=== PATIENT | male | born 1945 | race Caucasian/White ===

== ENCOUNTER 2017-12-21 10:37 | Outpatient (CLI) | payer MEDICARE ==
[2017-12-21 11:23] LABS: Mean Corpuscular HGB CONC 34.3 g/dL (32.0-36.0); Mean Corpuscular Hemoglobin 32.5 pg (27.0-31.0); Mean Corpuscular Volume 94.6 fL (78.0-98.0); Mean Platelet Volume 7.9 fL (7.4-10.4); Platelet Count 191 thou/uL (130-400); RBC Distribution Width 11.5 % (11.5-14.5); Red Blood Cell (RBC) Count 4.31 mill/uL (4.70-6.10); White Blood Cell (WBC) Count 5.3 thou/uL (4.8-10.8)
[2017-12-21 11:29] LABS: PTT 25.7 SEC (22.9-36.1); Prothrombin Time 12.7 SEC (12.0-14.7)
[2017-12-21 11:54] LABS: Anion Gap 8 mmol/L (10-20); BUN (Urea Nitrogen) 19 mg/dL (8.4-25.7); Calc. Creatinine Clearance 0 mL/min (70-130); Carbon Dioxide 30 mmol/L (23-31); Chloride 106 mmol/L (98-107); Estimated GFR-MDRD 61; Glucose 210 mg/dL (83-110); Potassium 3.3 mmol/L (3.5-5.1); Sodium 141 mmol/L (136-145)
--- NOTE | 2017-12-24 20:50 | EKG ---
Test Reason : Blood Pressure : / mmHG Vent. Rate : 090 BPM Atrial Rate : 090 BPM P-R Int : 212 ms QRS Dur : 102 ms QT Int : 358 ms P-R-T Axes : 047 -16 032 degrees QTc Int : 437 ms Sinus rhythm with occasional Premature ventricular complexes Voltage criteria for left ventricular hypertrophy Abnormal ECG No previous ECGs available Confirmed by Burke BECERRIL ([id number]) on 12/24/2017 8:50:46 PM Referred By: KAITY Confirmed By:Burke BECERRIL
== END 2017-12-21 10:38 | disposition home or self-care (01) ==
LOC: LABBT 10:37
PROVIDERS: ATTEND Surgery
DX: Z01.818 Encounter for other preprocedural examination (principal); M48.061 Spinal stenosis, lumbar region without neurogenic claudication; M54.16 Radiculopathy, lumbar region
CPT/HCPCS: 80048; 85027; 85610; 85730; 93005; 93010

== ENCOUNTER 2017-12-28 08:27 | Day surgery (SDC) | payer MEDICARE ==
[2017-12-21 11:03] VITALS: BMI 30.7
[2017-12-28] MEDS ORDERED: Bacitracin Zinc Ointment 30 gm TUBE ONE (10:33)
[2017-12-28] MEDS ORDERED: Thrombin 5000 UNITS/5 ML VIAL ONE (10:33)
[2017-12-28] MEDS ORDERED: Sodium Chloride 0.9% 10 ML ONE (10:33)
[2017-12-28] MEDS ORDERED: Fentanyl 100 MCG/2 ML VIAL ONE (10:39)
[2017-12-28] MEDS ORDERED: CEFAZOLIN/Water 2 GM/20 ML SYRINGE ONE (10:42)
--- NOTE | 2017-12-28 13:07 | OP ---
DATE OF PROCEDURE: 12/28/2017 OR: OR #11. WOUND TYPE: Type 1 wound. SURGEON: Everton Haas M.D. [employer] OPERATOR: Mario Robles PA-C. PREPROCEDURE DIAGNOSES: Lumbar stenosis with low back and leg pain. POSTPROCEDURE DIAGNOSES: Lumbar stenosis with low back and leg pain. PROCEDURE: L2-L3, L3-L4 laminectomies, partial facetectomy, and foraminotomies L2, L3, L4 nerve root . DESCRIPTION OF PROCEDURE: After informed consent was obtained from the patient, the patient brought to OR 11. Proper patient pause and identification was carried out. He was placed under excellent ge neral endotracheal anesthesia and positioned prone on the OR table. All appropriate points were padd ed. We identified the midline lumbar region. A linear gabby was made. This area sterilely cleansed, prepared, and draped. Proper patient positive identification was carried out. The wound was then o pened with a combination of sharp, monopolar and blunt dissection. The L2, L3, L4 segments were expo sed. Localization film confirmed our area of interest and performed L2-L3, L3-L4 laminectomies, part ial facetectomies and foraminotomies over the L2, L3, L4 nerve roots with excellent decompression of the common dural tube and the nerve roots. Copious irrigation occurred throughout as did maximizing hemostasis. The wound was then closed in anatomic layers following the sprinkling of vancomycin powd er. The patient then emerged from anesthesia.
[2017-12-28] MEDS ORDERED: Promethazine HCl 25 MG/ML VIAL IM PRN ×2 (13:26→13:27)
[2017-12-28] MEDS ORDERED: PACU-Morphine 4MG/ML VIAL SLOW IVP PRN (13:26)
[2017-12-28] MEDS ORDERED: Promethazine HCl 25 MG/ML VIAL SLOW IVP PRN (13:26)
[2017-12-28] MEDS ORDERED: Ondansetron HCl/PF 4 MG/2 ML Vial IVP PRN (13:26)
[2017-12-28] MEDS ORDERED: HYDROmorphone 2 MG/ML VIAL SLOW IVP PRN (13:26)
[2017-12-28] MEDS ORDERED: Meperidine HCl/PF 25 MG/ML VIAL SLOW IVP PRN (13:26)
[2017-12-28] MEDS ORDERED: Morphine Sulfate 2 MG/ML SYRINGE SLOW IVP PRN (13:26)
[2017-12-28] MEDS ORDERED: traMADol HCl 50 MG TAB PO PRN (13:27)
[2017-12-28] MEDS ORDERED: Acetaminophen 325 MG TAB PO PRN (13:27)
[2017-12-28] MEDS ORDERED: Mag-Al 1200 mg/1200 mg/30 ML UDCUP PO PRN (13:27)
[2017-12-28] MEDS ORDERED: Fleet Enema 133 ML BOT PR PRN (13:27)
[2017-12-28] MEDS ORDERED: HYDROcodone/Acetaminophen 7.5/325 mg Tablet PO PRN (13:27)
[2017-12-28] MEDS ORDERED: Bisacodyl 10 MG SUPP PR PRN (13:27)
[2017-12-28] MEDS ORDERED: tiZANidine HCl 4 MG TAB PO PRN (13:27)
[2017-12-28] MEDS ORDERED: Acetaminophen/Codeine 30-300mg Tablet PO PRN (13:27)
[2017-12-28] MEDS ORDERED: Milk Of Magnesia 30 ML UDCUP PO PRN (13:27)
[2017-12-28] MEDS ORDERED: Sodium Chloride 0.9% 1,000 ML IV SCH (13:30)
[2017-12-28] MEDS ORDERED: Glycopyrrolate 0.2 MG/ML 5 ML SYRINGE ONE (15:45)
[2017-12-28] MEDS ORDERED: PHENYLEPHRINE-NS 100 MCG/ML 10 ML SYRINGE ONE (15:45)
[2017-12-28] MEDS ORDERED: PROPOFOL 200 MG/20 ML VIAL ONE (15:45)
[2017-12-28] MEDS ORDERED: Dexamethasone 20 MG/5 ML VIAL ONE (15:45)
[2017-12-28] MEDS ORDERED: Metoclopramide HCl 10 MG/2 ML VIAL ONE (15:45)
[2017-12-28] MEDS ORDERED: Lidocaine 1% PF 5 ML VIAL ONE (15:45)
[2017-12-28] MEDS ORDERED: Ondansetron HCl/PF 4 MG/2 ML Vial ONE (15:45)
[2017-12-28] MEDS ORDERED: ePHEDrine/0.9% NaCl/PF SYRINGE 50 mg/10 ml ONE (15:45)
[2017-12-28] MEDS ORDERED: CEFAZOLIN/Water 2 GM/20 ML SYRINGE SLOW IVP SCH (19:00)
[2017-12-28] MEDS ORDERED: Latanoprost 0.005% Ophth Soln 2.5 ml Bottle EA EYE SCH (21:00)
[2017-12-29] MEDS ORDERED: Amlodipine 10 MG TAB ONE (08:54)
[2017-12-29] MEDS ORDERED: Atorvastatin Calcium 10 MG TAB ONE (08:55)
[2017-12-29] MEDS ORDERED: Amlodipine 10 MG TAB PO SCH (09:00)
[2017-12-29] MEDS ORDERED: Stress 600 With Zinc 1 TAB PO SCH (09:00)
[2017-12-29] MEDS ORDERED: Non-Formulary Item 1 EACH (Losartan/Hydrochlorothiazide [Losartan-Hctz 100-12.5 Mg Tab] 1 PO SCH (09:00)
[2017-12-29] MEDS ORDERED: Atorvastatin Calcium 10 MG TAB PO SCH (09:00)
[2017-12-29] MEDS ORDERED: Hydrochlorothiazide 25 MG TAB PO SCH (09:00)
[2017-12-29] MEDS ORDERED: Losartan 25 MG TAB PO SCH (09:00)
--- NOTE | 2017-12-29 11:43 | DIS ---
DATE OF ADMISSION: 12/28/2017 DATE OF DISCHARGE: 12/29/2017 DISCHARGE DIAGNOSES: Lumbar radiculopathy with lumbar spinal stenosis. HOSPITAL COURSE: On 12/28/2017, Mr. Grayson was admitted to undergo L2 to L4 laminectomies, partial facetectomies and foraminotomies. His surgery was without complication and he required 1 overnight s annel in the hospital for adequate recovery postoperatively including pain control. At time of dischar ge, the patient had complete resolution of his bilateral lower extremity symptoms, but did have some incisional back pain. He had good strength in the bilateral lower extremities with intact sensation to light touch throughout. He met criteria for discharge and appropriate outpatient followup appoint ments and education was provided to the patient. At the time of discharge, again, the patient was do ing well postoperatively and understood to call the office with questions or concerns prior to his [facility] followup appointment.
[2017-12-29 13:07] VITALS: BP 164/77; TEMP 98.8
== END 2017-12-29 10:30 | disposition home or self-care (01) ==
LOC: SDC 08:27 → SURG A 13:14 → UNDOADMOB 13:44 → SDC 12-29 10:30 → UNDODISOB 12-29 10:30
PROVIDERS: ATTEND Surgery
PROC: 01NB0ZZ Release Lumbar Nerve, Open Approach (ICD-10-PCS; principal; 2017-12-28)
DX: M48.061 Spinal stenosis, lumbar region without neurogenic claudication (principal); M54.16 Radiculopathy, lumbar region; Z79.82 Long term (current) use of aspirin; Z79.899 Other long term (current) drug therapy
CPT/HCPCS: 76001; J0131; J1100; J2001; J2405; J2704; J2765; J3010; J3370; J3490